=== PATIENT | female | born 1985 | race Caucasian/White ===

== ENCOUNTER 2021-08-16 05:02 | Inpatient (IN) ==
[2021-08-16] MEDS ORDERED: CeFAZolin 2,000 MG/120 ML BAG IVPB ONE (05:52)
[2021-08-16] MEDS ORDERED: Ringers Solution, Lactated 1,000 ML IVC ONE (05:52)
[2021-08-16] MEDS ORDERED: Metoclopramide 10 MG/2 ML VIAL IVP ONE (05:52)
[2021-08-16] MEDS ORDERED: Oxytocin 20 units/ LR 1000 mL 20 UNIT/1,000 ML BAG IVC ONE (05:52)
[2021-08-16] MEDS ORDERED: Famotidine 20 MG/2 ML VIAL IVP ONE (05:52)
[2021-08-16] MEDS ORDERED: Oxytocin 20 units/ LR 1000 mL 20 UNIT/1,000 ML BAG IVC SCH ×3 (06:00→10:51)
[2021-08-16] MEDS ORDERED: Ringers Solution, Lactated 1,000 ML IVC SCH (06:00)
[2021-08-16 06:19] LABS: Basophils % 0.2 %; Eosinophils # 0.2 K/mcL (0.0-0.6); Eosinophils % 1.4 %; Hematocrit 35.2 % (35.3-44.9); Hemoglobin 11.9 g/dL (11.5-15.4); Immature Granulocytes % 0.5 % (0-4); Lymphocytes # 3.6 K/mcL (0.6-4.6); Lymphocytes % 27.4 %; Mean Corpuscular HGB Conc 33.8 g/dL (31.6-35.5); Mean Corpuscular Hemoglobin 27.4 pg (28.0-33.3); Mean Corpuscular Volume 80.9 fL (83.0-100.0); Mean Platelet Volume 10.3 fL (9.4-12.4); Monocytes # 0.6 K/mcL (0.0-1.3); Monocytes % 4.6 %; Neutrophils # 8.6 K/mcL (1.6-8.9); Platelet Count 313 K/mcL (140-400); Red Blood Count 4.35 M/mcL (3.82-4.97); Red Cell Distribution Width 15.1 % (11.5-14.5); Segmented Neutrophils % 65.9 %
[2021-08-16] MEDS ORDERED: *HR* HYDROmorphone PF 0.5 MG/0.5 ML SYRINGE IVP PRN (06:42)
[2021-08-16] MEDS ORDERED: Ondansetron 4 MG/2 ML VIAL IVP PRN ×2 (06:42→10:51)
[2021-08-16 07:05] LABS: Influenza A PCR Negative (Negative); Influenza B PCR Negative (Negative); Resp. Syncytial Virus PCR Negative (Negative)
[2021-08-16 07:06] LABS: SARS-CoV-2 by PCR (In House) Negative (Negative)
[2021-08-16] MEDS ORDERED: *HR* Morphine Sulfate/PF 10 MG/10 ML AMPUL ONE (07:14)
[2021-08-16] MEDS ORDERED: EPHEDrine 50 MG/ML VIAL ONE (07:14)
[2021-08-16] MEDS ORDERED: *HR* Phenylephrine 10 MG/ML VIAL ONE (07:15)
[2021-08-16] MEDS ORDERED: Ondansetron 4 MG/2 ML VIAL ONE (07:15)
[2021-08-16] MEDS ORDERED: Ketorolac 30 MG/ML VIAL ONE (07:15)
[2021-08-16] MEDS ORDERED: Acetaminophen IV 1,000 MG/100 ML BAG IVPB ONE (07:15)
[2021-08-16] MEDS ORDERED: *HR* FentaNYL (PF) 100 MCG/2 ML VIAL ONE (07:15)
[2021-08-16] MEDS ORDERED: 0.9 % Sodium Chloride 1,000 ML ONE (08:03)
[2021-08-16] MEDS ORDERED: *HR* OxyCODONE Immed Rel 5 MG TABLET PO PRN (10:51)
[2021-08-16] MEDS ORDERED: Simethicone 80 MG TAB.CHEW PO PRN (10:51)
[2021-08-16] MEDS ORDERED: Metoclopramide 10 MG/2 ML VIAL IVP PRN (10:51)
[2021-08-16] MEDS ORDERED: Prenatal Vit/FA 1 EACH TABLET PO SCH (10:51)
[2021-08-16 14:36] LABS: Amphetamine Screen,Urine Negative ng/mL (Cutoff=1000); Barbiturate Screen,Urine Negative ng/mL (Cutoff=200); Benzodiazepines Screen,Urine Negative ng/mL (Cutoff=200); Cannabinoid Screen,Urine Negative ng/mL (Cutoff = 50); Cocaine Screen,Urine Negative ng/mL (Cutoff= 300); Opiate Screen,Urine Negative ng/mL (Cutoff=300); Phencyclidine Screen,Urine Negative ng/mL (Cutoff=25)
[2021-08-16] MEDS: Acetaminophen 325 MG TABLET PO SCH (19:54)
[2021-08-16] MEDS: Ibuprofen 600 MG TABLET PO SCH (19:54)
[2021-08-17] MEDS: Acetaminophen 325 MG TABLET PO SCH ×2 (04:45→11:58)
[2021-08-17] MEDS: Ibuprofen 600 MG TABLET PO SCH ×2 (04:45→11:57)
[2021-08-17 07:31] VITALS: BP 112/65; PULSE 72; TEMP 98.4; O2SAT 96
== END 2021-08-17 13:00 | disposition home or self-care (01) | DRG 788 ==
LOC: 1NENULAB 05:02 → 1NENUOBS 11:28
PROVIDERS: ADMIT Obstetrics & Gynecology; ATTEND Obstetrics & Gynecology